=== PATIENT | male | born 1975 | race American Indian/Alaskan Native ===

== ENCOUNTER 2019-01-18 11:40 | Emergency (ER) | payer OTHER ==
--- NOTE | 2019-01-18 12:09 | Event Note ---
ED Screening Note Date of service: 01/18/19 Time: 12:07 ED Screening Note: This is a 43 y.o. M. that presents to the ER with headache and dizziness. Patient reports waking up with symptoms. This initial assessment/diagnostic orders/clinical plan/treatment(s) is/are subject to change based on patients health status, clinical progression and re- assessment by fellow clinical providers in the ED. Further treatment and workup at subsequent clinical providers discretion. Patient/guardian urged not to elope from the ED as their condition may be serious if not clinically assessed and managed. Initial orders include: PO glucose
[2019-01-18 13:29] LABS: Basophils # (Auto) 0.1 K/mm3 (0.0-0.1); Basophils % (Auto) 1.4 % (0.0-1.8); Eosinophils # (Auto) 0.1 K/mm3 (0.0-0.4); Eosinophils % (Auto) 2.6 % (0.0-4.3); Hematocrit 40.1 % (35.5-45.6); Hemoglobin 13.6 gm/dl (11.8-15.2); Lymphocytes # (Auto) 2.2 K/mm3 (1.2-5.4); Lymphocytes % (Auto) 43.5 % (13.4-35.0); Mean Corpuscular HGB Conc 34 % (32-34); Mean Corpuscular Volume 90 fl (84-94); Monocytes # (Auto) 0.4 K/mm3 (0.0-0.8); Monocytes % (Auto) 6.9 % (0.0-7.3); Platelet Count 264 K/mm3 (140-440); Red Blood Count 4.45 M/mm3 (3.65-5.03); Red Cell Distribution Width 13.7 % (13.2-15.2)
--- NOTE | 2019-01-18 13:39 | XRay Report ---
CHEST 2 VIEWS INDICATION / CLINICAL INFORMATION: SOB. COMPARISON: None available. FINDINGS: SUPPORT DEVICES: None. HEART / MEDIASTINUM: No significant abnormality. LUNGS / PLEURA: No significant pulmonary or pleural abnormality. No pneumothorax. ADDITIONAL FINDINGS: No significant additional findings. IMPRESSION: 1. No acute findings. Signer Name: Stormy Lomeli MD Signed: 01/18/2019 1:35 PM Workstation Name: [id number]
--- NOTE | 2019-01-18 13:43 | Emergency Department Report ---
ED General Adult HPI - General Chief complaint: Dizziness Stated complaint: ALONA/LIGHTHEADED Time Seen by Provider: 01/18/19 12:07 Source: patient Mode of arrival: Ambulatory Limitations: No Limitations - History of Present Illness Initial comments: Patient is a 43-year-old male who presents the emergency room with complaints of lightheadedness that began last week. Has associated shortness of breath. He denies any pain with breathing, chest pain, lower extremity edema, recent long car or plane ride, recent surgery, recent immobilization. He denies ever having this in the past. He denies any cardiac history, family cardiac history, family history of DVT or PE. He denies any headache, room spinning, numbness, weakness. He denies any past medical history her allergies to medications. He denies any history of high blood pressure. - Related Data Previous Rx's Medication Instructions Recorded Last Taken Type Acetaminophen/Codeine [Tylenol #3] 1 tab PO Q6H PRN #12 tab 09/16/15 Unknown Rx Ondansetron [Zofran Odt] 4 mg PO Q8HR #12 tab.rapdis 09/16/15 Unknown Rx Allergies Allergy/AdvReac Type Severity Reaction Status Date / Time No Known Allergies Allergy Verified 09/15/15 23:34 ED Review of Systems ROS: Stated complaint: ALONA/LIGHTHEADED Other details as noted in HPI Comment: All other systems reviewed and negative ED Past Medical Hx - Past Medical History Previous Medical History?: No - Surgical History Past Surgical History?: No - Social History Smoking Status: Never Smoker Substance Use Type: None - Medications Home Medications: Home Medications Medication Instructions Recorded Confirmed Last Taken Type Acetaminophen/Codeine [Tylenol #3] 1 tab PO Q6H PRN #12 tab 09/16/15 Unknown Rx Ondansetron [Zofran Odt] 4 mg PO Q8HR #12 tab.rapdis 09/16/15 Unknown Rx ED Physical Exam - General Limitations: No Limitations General appearance: alert, in no apparent distress - Head Head exam: Present: atraumatic, normocephalic - Eye Eye exam: Present: normal appearance - ENT ENT exam: Present: mucous membranes moist - Respiratory Respiratory exam: Present: normal lung sounds bilaterally. Absent: respiratory distress, wheezes, rales, rhonchi, stridor, chest wall tenderness, accessory muscle use, decreased breath sounds, prolonged expiratory - Cardiovascular Cardiovascular Exam: Present: regular rate, normal rhythm, normal heart sounds. Absent: systolic murmur, diastolic murmur, rubs, gallop - Neurological Exam Neurological exam: Present: alert, oriented X3, CN II-XII intact, normal gait, other (normal finger to nose, 5/5 strength in the BUE/BLE, equal gusset edger strength, no focal neuro deficit). Absent: motor sensory deficit - Psychiatric Psychiatric exam: Present: normal affect, normal mood - Skin Skin exam: Present: warm, dry, intact ED Course Vital Signs 01/18/19 01/18/19 12:07 14:35 Temperature 98.6 F Pulse Rate 71 70 Respiratory 18 16 Rate Blood Pressure 170/93 Blood Pressure 164/90 [Left] O2 Sat by Pulse 99 99 Oximetry ED Medical Decision Making - Lab Data Result diagrams: 01/18/19 12:57 01/18/19 12:57 Lab Results 01/18/19 01/18/19 01/18/19 Range/Units 12:18 12:57 12:57 WBC 5.2 (4.5-11.0) K/mm3 RBC 4.45 (3.65-5.03) M/mm3 Hgb 13.6 (11.8-15.2) gm/dl Hct 40.1 (35.5-45.6) % MCV 90 (84-94) fl MCH 31 (28-32) pg MCHC 34 (32-34) % RDW 13.7 (13.2-15.2) % Plt Count 264 (140-440) K/mm3 Lymph % (Auto) 43.5 H (13.4-35.0) % Scott % (Auto) 6.9 (0.0-7.3) % Eos % (Auto) 2.6 (0.0-4.3) % Baso % (Auto) 1.4 (0.0-1.8) % Lymph # 2.2 (1.2-5.4) K/mm3 Scott # 0.4 (0.0-0.8) K/mm3 Eos # 0.1 (0.0-0.4) K/mm3 Baso # 0.1 (0.0-0.1) K/mm3 Seg Neutrophils % 45.6 (40.0-70.0) % Seg Neutrophils # 2.4 (1.8-7.7) K/mm3 D-Dimer 135.00 (0-234) ng/mlDDU Sodium (137-145) mmol/L Potassium (3.6-5.0) mmol/L Chloride (98-107) mmol/L Carbon Dioxide (22-30) mmol/L Anion Gap mmol/L BUN (9-20) mg/dL Creatinine (0.8-1.5) mg/dL Estimated GFR ml/min BUN/Creatinine Ratio % Glucose (75-100) mg/dL POC Glucose 111 H (70-105) Calcium (8.4-10.2) mg/dL Total Bilirubin (0.1-1.2) mg/dL AST (5-40) units/L ALT (7-56) units/L Alkaline Phosphatase (35-129) units/L Troponin T (0.00-0.029) ng/mL NT-Pro-B Natriuret Pep (0-450) pg/mL Total Protein (6.3-8.2) g/dL Albumin (3.9-5) g/dL Albumin/Globulin Ratio % 01/18/ Range/Units 12:57 WBC (4.5-11.0) K/mm3 RBC (3.65-5.03) M/mm3 Hgb (11.8-15.2) gm/dl Hct (35.5-45.6) % MCV (84-94) fl MCH (28-32) pg MCHC (32-34) % RDW (13.2-15.2) % Plt Count (140-440) K/mm3 Lymph % (Auto) (13.4-35.0) % Scott % (Auto) (0.0-7.3) % Eos % (Auto) (0.0-4.3) % Baso % (Auto) (0.0-1.8) % Lymph # (1.2-5.4) K/mm3 Scott # (0.0-0.8) K/mm3 Eos # (0.0-0.4) K/mm3 Baso # (0.0-0.1) K/mm3 Seg Neutrophils % (40.0-70.0) % Seg Neutrophils # (1.8-7.7) K/mm3 D-Dimer (0-234) ng/mlDDU Sodium 143 (137-145) mmol/L Potassium 4.0 (3.6-5.0) mmol/L Chloride 104.1 (98-107) mmol/L Carbon Dioxide 30 (22-30) mmol/L Anion Gap 13 mmol/L BUN 9 (9-20) mg/dL Creatinine 0.9 (0.8-1.5) mg/dL Estimated GFR > 60 ml/min BUN/Creatinine Ratio 10 % Glucose 98 (75-100) mg/dL POC Glucose (70-105) Calcium 9.6 (8.4-10.2) mg/dL Total Bilirubin 0.50 (0.1-1.2) mg/dL AST 26 (5-40) units/L ALT 30 (7-56) units/L Alkaline Phosphatase 76 (35-129) units/L Troponin T < 0.010 (0.00-0.029) ng/mL NT-Pro-B Natriuret Pep < 5 (0-450) pg/mL Total Protein 8.2 (6.3-8.2) g/dL Albumin 4.7 (3.9-5) g/dL Albumin/Globulin Ratio 1.3 % - EKG Data EKG shows normal: sinus rhythm, intervals, QRS complexes Rate: normal - EKG Data 01/18/19 13:[address] changes no STEMI LAD - Medical Decision Making Patient is a 43-year-old male who presents the emergency room with complaints of lightheadedness that began last week. Has associated shortness of breath. He denies any pain with breathing, chest pain, lower extremity edema, recent long car or plane ride, recent surgery, recent immobilization. He denies ever having this in the past. He denies any cardiac history, family cardiac history, family history of DVT or PE. He denies any headache, room spinning, numbness, weakness. He denies any past medical history or allergies to medications. He denies any history of high blood pressure. no tachycardia, oxygen saturation is normal, BP is moderately elevated. labs WNL, trop is negative, d-dimer is negative, BNP is normal. PERC negative. EKG with LAD and non specific ST-T changes, no STEMI. CXR is normal. will have pt follow up with cardiology on an outpatient basis. advised pt to please follow up with a primary care doctor and green marketer the next 2-3 days. Please discuss with primary care doctor the elevation in your blood pressure during today's visit. Please keep a blood pressure log and eat a low sodium diet. please incorporate daily exercise. - Differential Diagnosis PTX, PE, PNA, Asthma, ACS, CHF, pulmonary HTN, pulmonary fibrosis, HTN Critical care attestation.: If time is entered above; I have spent that time in minutes in the direct care of this critically ill patient, excluding procedure time. ED Disposition Clinical Impression: Light headedness, SOB (shortness of breath), Elevated blood pressure reading Disposition: DC- TO HOME OR SELFCARE Is pt being admited?: No Does the pt Need Aspirin: No Condition: Stable Instructions: Dyspnea (ED), Lightheadedness (ED) Additional Instructions: Please follow up with a primary care doctor and green marketer the next 2-3 days. Please discuss with primary care doctor the elevation in your blood pressure during today's visit. Please keep a blood pressure log and eat a low sodium diet. please incorporate daily exercise. Referrals: JHONNY REA MD [Primary Care Provider] - 2-3 Days MICHELL LOPEZ MD [Staff Physician] - 2-3 Days Time of Disposition: 14:08 Print Language: MAORI
[2019-01-18 13:49] LABS: Alanine Aminotransferase 30 units/L (7-56); Albumin 4.7 g/dL (3.9-5); BUN/Creatinine Ratio 10; Blood Urea Nitrogen 9 mg/dL (9-20); Calcium 9.6 mg/dL (8.4-10.2); Hemolysis Index 7
[2019-01-18 14:36] VITALS: BP 164/90
== END 2019-01-18 14:35 | disposition home or self-care (01) ==
LOC: ED 11:40
DX: R42 Dizziness and giddiness (principal); R06.02 Shortness of breath; R03.0 Elevated blood-pressure reading, without diagnosis of hypertension; Z79.899 Other long term (current) drug therapy
CPT/HCPCS: 36415; 71046; 80053; 82962; 83880; 84484; 85025; 85379; 93005; 93010

== ENCOUNTER 2019-02-14 10:57 | Emergency (ER) | payer OTHER ==
--- NOTE | 2019-02-14 11:36 | Event Note ---
ED Screening Note ED Screening Note: pt presents for left sided BEASLEY that began yesterday no vision changes, no numbness, no weakness has not taken anything PMHx none no allergies to meds elevated BP in triage elevated during last visit, pt has not seen a primary care doctor This initial assessment/diagnostic orders/clinical plan/treatment(s) is/are subject to change based on patients health status, clinical progression and re- assessment by fellow clinical providers in the ED. Further treatment and workup at subsequent clinical providers discretion. Patient/guardian urged not to elope from the ED as their condition may be serious if not clinically assessed and managed.
--- NOTE | 2019-02-14 12:26 | Emergency Department Report ---
ED Headache HPI - General Chief Complaint: Headache Stated Complaint: HEADACHE Time Seen by Provider: 02/14/19 11:35 Source: patient - History of Present Illness Initial Comments: Mr. Figueroa is a very pleasant 43-year-old male without significant past medical history who presents with tension headache. He has recurrent headache for the past several months. He has concern for elevated blood pressure. At home, personal reading on personal device systolic 170 mm Hg. no previous history of high blood pressure. He has now right temporal headache denies visual changes. Denies neck pain. Denies fever. Denies vomiting. Gradual onset of headache which is intermittent. He states that stress at work continues to exacerbate the headache. Timing/Duration: episodic, waxing and waning, other (several months) Quality: mild Head Injury Location: frontal, temporal Recent Head Trauma: frequent headaches Associated Symptoms: denies symptoms Allergies/Adverse Reactions: Allergies No Known Allergies Allergy (Verified 02/14/19 11:22) Home Medications: Ambulatory Orders Acetaminophen/Codeine [Tylenol #3] 1 tab PO Q6H PRN #12 tab 09/16/15 Ondansetron [Zofran Odt] 4 mg PO Q8HR #12 tab.rapdis 09/16/15 ED Review of Systems ROS: Stated complaint: HEADACHE Other details as noted in HPI Comment: All other systems reviewed and negative Constitutional: denies: fever, malaise Gastrointestinal: denies: abdominal pain Neurological: headache. denies: numbness, paresthesias, confusion, abnormal gait, vertigo ED Past Medical Hx - Past Medical History Previous Medical History?: No - Surgical History Past Surgical History?: No - Social History Smoking Status: Never Smoker Substance Use Type: None - Medications Home Medications: Home Medications Medication Instructions Recorded Confirmed Last Taken Type Acetaminophen/Codeine [Tylenol #3] 1 tab PO Q6H PRN #12 tab 09/16/15 Unknown Rx Ondansetron [Zofran Odt] 4 mg PO Q8HR #12 tab.rapdis 09/16/15 Unknown Rx ED Physical Exam - General Limitations: No Limitations General appearance: alert, in no apparent distress - Head Head exam: Present: atraumatic, normocephalic - Eye Eye exam: Present: normal appearance - ENT ENT exam: Present: mucous membranes moist - Neck Neck exam: Present: normal inspection, full ROM - Respiratory Respiratory exam: Present: normal lung sounds bilaterally. Absent: respiratory distress, wheezes, rales, rhonchi - Cardiovascular Cardiovascular Exam: Present: regular rate, normal rhythm, normal heart sounds. Absent: systolic murmur, diastolic murmur, rubs, gallop - GI/Abdominal GI/Abdominal exam: Present: soft, normal bowel sounds. Absent: distended, tenderness, guarding, rebound - Rectal Rectal exam: Present: deferred - Extremities Exam Extremities exam: Present: normal inspection - Back Exam Back exam: Present: normal inspection - Neurological Exam Neurological exam: Present: alert, oriented X3 - Psychiatric Psychiatric exam: Present: normal affect, normal mood - Skin Skin exam: Present: warm, dry, intact, normal color. Absent: rash ED Course Vital Signs 02/14/19 11:37 Temperature 99 F Pulse Rate 57 L Respiratory 16 Rate Blood Pressure 172/94 [Left] O2 Sat by Pulse 99 Oximetry ED Medical Decision Making - Medical Decision Making 1. Tension headache: Mr. Figueroa politely declined medication. He will address [facility] with rest hydration and Vacation from work. 2. Elevated blood pressure, second elevated blood pressure reading documented in this emergency department within the last 2 months. I strongly encouraged evaluation by outpatient medical physician. I have given him referral to primary care physician. Strongly encouraged a full physical. Critical care attestation.: If time is entered above; I have spent that time in minutes in the direct care of this critically ill patient, excluding procedure time. ED Disposition Clinical Impression: Tension headache, Hypertensive urgency Disposition: DC-01 TO HOME OR SELFCARE Is pt being admited?: No Does the pt Need Aspirin: No Condition: Stable Instructions: Tension Headache (ED), Hypertension (ED) Referrals: OMER MCDONNELL MD [Staff Physician] - 3-5 Days Forms: Work/School Release Form(ED)
[2019-02-14 12:34] VITALS: BP 170/90
== END 2019-02-14 12:32 | disposition home or self-care (01) ==
LOC: ED 10:57
DX: I16.0 Hypertensive urgency (principal); I10 Essential (primary) hypertension

== ENCOUNTER 2020-06-22 10:21 | Emergency (ER) | payer OTHER ==
[2020-06-22] MEDS ORDERED: KETOROLAC 60 MG/2 ML INJ IM ONE (10:26)
[2020-06-22] MEDS ORDERED: predniSONE 20 MG TAB PO ONE (10:26)
[2020-06-22 10:34] VITALS: BP 180/110
--- NOTE | 2020-06-22 10:56 | Emergency Department Report ---
ED Neck Pain/Injury HPI - General Chief Complaint: Neck Pain/Injury Stated Complaint: RT HAND NUMB Time Seen by Provider: 06/22/20 10:26 Mode of arrival: Ambulatory Limitations: No Limitations - History of Present Illness Initial Comments: This is a 45-year-old male nontoxic, well nourished in appearance, no acute signs of distress presents to the ED with c/o of right sided upper back pain with radiation to right hand. Patient stated that the past 2 days she was moving and developed this pain. Patient denies any trauma. Denies any bladder or bowel instability. Patient denies any urinary symptoms. Denies any fever, chills, nausea, vomiting, headache, stiff neck, chest pain or shortness of breath. Patient denies any numbness or tingling. Denies any allergies. MD Complaint: upper back pain -: days(s) Radiation: left upper extremity Severity: mild Severity scale (0 -10): 3 Quality: aching Consistency: intermittent Improves With: immobilization Worsens With: movement of neck Context: lifting, turning/bending Associated Symptoms: numbness, tingling. denies: headache, fever, weakness, vertigo, difficulty walking, swollen glands, difficulty swallowing, nausea, vomiting - Related Data Previous Rx's Medication Instructions Recorded Last Taken Type Acetaminophen/Codeine [Tylenol #3] 1 tab PO Q6H PRN #12 tab 09/16/15 Unknown Rx Ondansetron [Zofran Odt] 4 mg PO Q8HR #12 tab.rapdis 09/16/15 Unknown Rx Cyclobenzaprine [Flexeril] 10 mg PO QHS PRN #10 tablet 06/22/20 Unknown Rx Naproxen 500 mg PO Q12H PRN #12 tablet 06/22/20 Unknown Rx Allergies Allergy/AdvReac Type Severity Reaction Status Date / Time No Known Allergies Allergy Verified 02/14/19 11:22 ED Review of Systems ROS: Stated complaint: RT HAND NUMB Other details as noted in HPI Comment: All other systems reviewed and negative Constitutional: denies: chills, fever Eyes: denies: eye pain, eye discharge, vision change ENT: denies: ear pain, throat pain Respiratory: denies: cough, shortness of breath, wheezing Cardiovascular: denies: chest pain, palpitations Endocrine: no symptoms reported Gastrointestinal: denies: abdominal pain, nausea, diarrhea Genitourinary: denies: urgency, dysuria Musculoskeletal: denies: back pain, joint swelling, arthralgia Skin: denies: rash, lesions Neurological: denies: headache, weakness, paresthesias Psychiatric: denies: anxiety, depression Hematological/Lymphatic: denies: easy bleeding, easy bruising ED Past Medical Hx - Past Medical History Previous Medical History?: No - Surgical History Past Surgical History?: No - Social History Smoking Status: Never Smoker Substance Use Type: None - Medications Home Medications: Home Medications Medication Instructions Recorded Confirmed Last Taken Type Acetaminophen/Codeine [Tylenol #3] 1 tab PO Q6H PRN #12 tab 09/16/15 Unknown Rx Ondansetron [Zofran Odt] 4 mg PO Q8HR #12 tab.rapdis 09/16/15 Unknown Rx Cyclobenzaprine [Flexeril] 10 mg PO QHS PRN #10 tablet 06/22/20 Unknown Rx Naproxen 500 mg PO Q12H PRN #12 tablet 06/22/20 Unknown Rx ED Physical Exam - General Limitations: No Limitations General appearance: alert, in no apparent distress - Head Head exam: Present: atraumatic, normocephalic - Eye Eye exam: Present: normal appearance - Neck Neck exam: Present: normal inspection, full ROM. Absent: tenderness, meningismus, lymphadenopathy - Respiratory Respiratory exam: Absent: respiratory distress - Cardiovascular Cardiovascular Exam: Present: regular rate - Extremities Exam Extremities exam: Present: normal inspection, full ROM, normal capillary refill, other (neurovascular intact). Absent: tenderness, joint swelling - Back Exam Back exam: Present: normal inspection, full ROM, paraspinal tenderness (cervical paraspinal). Absent: tenderness, CVA tenderness (R), CVA tenderness (L), muscle spasm, vertebral tenderness, rash noted - Neurological Exam Neurological exam: Present: alert, oriented X3, normal gait - Psychiatric Psychiatric exam: Present: normal affect, normal mood - Skin Skin exam: Present: warm, dry, intact, normal color. Absent: rash ED Course Vital Signs 06/22/20 10:28 Temperature 97.4 F L Pulse Rate 65 Respiratory 20 Rate Blood Pressure 180/110 O2 Sat by Pulse 100 Oximetry - Reevaluation(s) Reevaluation #1: 06/22/20 10:53 Patient is speaking in full sentences with no signs of distress noted. ED Medical Decision Making - Medical Decision Making This is a 45-year-old male that presents with upper back strain. Patient is stable was examined by me. There is no spinal tenderness. There is no cauda equina syndrome during examination. No bladder or bowel instability. Patient recieved Toradol and prednisone which stated symptoms has improved and subsided. Patient is discharged with muscle relaxant and NSAID. Patient was instructed not to operate any machinery while taking muscle relaxant as they cause her drowsiness. Patient was referred to Follow-up with a primary care doctor in 3-5 days or if symptoms worsen and continue return to emergency room as soon as possible. At time of discharge, the patient does not seem toxic or ill in appearance. No acute signs of distress noted. Patient agrees to discharge treatment plan of care. No further questions noted by the patient. Critical care attestation.: If time is entered above; I have spent that time in minutes in the direct care of this critically ill patient, excluding procedure time. ED Disposition Clinical Impression: Cervical radiculopathy Cervical muscle strain Qualifiers: Encounter type: initial encounter Qualified Code(s): S16.1XXA - Strain of muscle, fascia and tendon at neck level, initial encounter Disposition: DC- TO HOME OR SELFCARE Is pt being admited?: No Does the pt Need Aspirin: No Condition: Stable Instructions: Cervical Radiculopathy, Radicular Pain, Cervical Sprain Additional Instructions: Follow-up with a primary care doctor in 3-5 days or if symptoms worsen and continue return to emergency room as soon as possible. Prescriptions: Cyclobenzaprine [Flexeril] 10 mg PO QHS PRN #10 tablet PRN Reason: Muscle Spasm Naproxen 500 mg PO Q12H PRN #12 tablet PRN Reason: Pain , Severe (7-10) Referrals: PRIMARY CAREMD [Referring] - 3-5 Days JHONNY REA MD [Staff Physician] - 3-5 Days Forms: Work/School Release Form(ED) Time of Disposition: 10:56
== END 2020-06-22 11:54 | disposition home or self-care (01) ==
LOC: ED 10:21
DX: S16.1XXA Strain of muscle, fascia and tendon at neck level, initial encounter (principal); M54.12 Radiculopathy, cervical region; Z79.899 Other long term (current) drug therapy; X58.XXXA Exposure to other specified factors, initial encounter; Y93.89 Activity, other specified; Y92.89 Other specified places as the place of occurrence of the external cause; Y99.8 Other external cause status
CPT/HCPCS: 96372; 99282; J1885; J7512

== ENCOUNTER 2021-08-18 05:30 | Emergency (ER) | payer OTHER ==
[2021-08-18 08:26] VITALS: BP 157/101
[2021-08-18] MEDS ORDERED: predniSONE 20 MG TAB PO ONE (08:36)
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
== END 2021-08-18 09:10 | disposition home or self-care (01) ==
LOC: ED 05:30
DX: M79.18 Myalgia, other site (principal); R03.0 Elevated blood-pressure reading, without diagnosis of hypertension; V87.7XXA Person injured in collision between other specified motor vehicles (traffic), initial encounter; Y93.89 Activity, other specified; Y92.488 Other paved roadways as the place of occurrence of the external cause; Y99.8 Other external cause status
CPT/HCPCS: 99282